=== PATIENT | male | born 1945 | race Two or more races ===

== ENCOUNTER 2023-06-25 05:31 | Day surgery (SDC) | payer OTHER ==
[~2023-06-25] VITALS: Ht 174 cm; Wt 75.3 kg
[~2023-06-25 05:31] MED LIST: ATENOLOL25 MG PO; CRESTOR10 MG PO; HYDROCHLOROTHIA25 MG PO; NORVASC5 MG PO; ZESTRIL10 M1 PO; ZETIA10 MG PO
[2023-06-25] MEDS ORDERED: TRAMADOL HCL50 MG PO (09:29)
[2023-06-25] MEDS ORDERED: TYLENOL ARTHRI650 MG PO (09:29)
[2023-06-25] MEDS ORDERED: MIRALAX17 GM PO (09:29)
[2023-06-25] MEDS ORDERED: KETO10TA2 PO (09:29)
== END 2023-06-25 15:50 | disposition home or self-care (01) ==
LOC: CIR.AMB 05:31
PROVIDERS: ATTEND Surgery
DX: K40.90 Unilateral inguinal hernia, without obstruction or gangrene, not specified as recurrent (principal); Z88.1 Allergy status to other antibiotic agents
CPT/HCPCS: 49650; C1781